=== PATIENT | female | born 1960 | race Caucasian/White ===

== ENCOUNTER → 2020-07-08 11:02 | Outpatient (CLI) | payer OTHER, SELFPAY ==
[2020-07-12 17:58] LABS: QuantiFERON Mitogen Value >10.00 IU/mL (.); QuantiFERON Nil Value 0.12 IU/mL (.); QuantiFERON TB Gold Plus Negative (Negative); QuantiFERON TB1 Ag Value 0.08 IU/mL (.); QuantiFERON TB2 Ag Value 0.06 IU/mL (.)
== END ==
PROVIDERS: PCP Specialist; Referring Provider Dermatology; Visit Provider Dermatology
DX: L40.0 Psoriasis vulgaris (principal); L40.59 Other psoriatic arthropathy; Z79.899 Other long term (current) drug therapy
CPT/HCPCS: 36415; 86480

== ENCOUNTER → 2022-07-04 10:25 | Outpatient (CLI) | payer OTHER, SELFPAY ==
[2022-07-08 14:22] LABS: QuantiFERON Mitogen Value >10.00 IU/mL (.); QuantiFERON Nil Value 0.04 IU/mL (.); QuantiFERON TB Gold Plus Negative (Negative); QuantiFERON TB1 Ag Value 0.04 IU/mL (.); QuantiFERON TB2 Ag Value 0.05 IU/mL (.)
== END ==
PROVIDERS: PCP Specialist; Referring Provider Dermatology; Visit Provider Dermatology
DX: L40.0 Psoriasis vulgaris (principal)
CPT/HCPCS: 36415; 86480

== ENCOUNTER → 2023-05-09 09:56 | Outpatient (CLI) | payer OTHER, SELFPAY ==
--- NOTE | 2023-05-09 10:00 | DI.RAD.S_ITS ---
PROCEDURE: FL GUIDED PICC PLACEMENT INDICATIONS: Pyothorax without fistula COMPARISON: None. FINDINGS: PICC was placed by the intravenous therapy team from the left side. Fluoroscopic spot film demonstrates the tip of PICC projecting to the area of distal SVC. IMPRESSION: Tip of PICC projects to the area of distal SVC. Approved by: Mayur Lovett M.D. on 05/15/2023 at 11:01
== END ==
LOC: RAD 09:57
PROVIDERS: PCP Specialist; Referring Provider Internal Medicine; Visit Provider Internal Medicine
DX: J86.9 Pyothorax without fistula (principal)
CPT/HCPCS: 36573